=== PATIENT | male | born 1985 | race Two or more races ===

== ENCOUNTER 2023-06-29 14:51 | Emergency (ER) | payer MEDICAID ==
[~2023-06-29] VITALS: Ht 182.9 cm; Wt 111.1 kg
[2023-06-29] MEDS ORDERED: IBUP-1953 PO (17:22)
[2023-06-29 17:30] VITALS: BP 135/95; TEMP 98.4; O2SAT 97
== END 2023-06-29 17:31 | disposition home or self-care (01) ==
LOC: ER 14:55
DX: M25.512 Pain in left shoulder (principal)
CPT/HCPCS: 73030-TC

== ENCOUNTER 2024-11-27 09:20 | Emergency (ER) | payer MEDICAID ==
[~2024-11-27] VITALS: Ht 170.2 cm; Wt 95.3 kg
[~2024-11-27 09:20] MED LIST: IBUP-1953 PO
[2024-11-27] MEDS ORDERED: KETOROLAC TROMETHAMINE 15 MG/ML VIAL ONE ×2 (10:26→14:38)
[2024-11-27 10:34] LABS: CALCIUM, SERUM 9.3 mg/dL (8.5-10.1); CREATININE 0.9 mg/dL (0.6-1.3); SODIUM SERUM 139.0 mmol/L (136-145); UREA NITROGEN, BLOOD 11.0 mg/dL (7-18)
[2024-11-27 10:38] LABS: PLATELET COUNT (AUTO) 171 K/uL (150-450); RED BLOOD CELL COUNT(AUTO) 5.57 MIL/uL (4.5-6.0); RED CELL DISTRIBUTION WIDTH 13.3 % (11.5-15.0); WHITE BLOOD COUNT (AUTO) 10.9 K/uL (4.3-11.0)
[2024-11-27] MEDS: IV NS 0.9% 1,000 ML BAG IV ONE (10:39)
[2024-11-27] MEDS: KETOROLAC TROMETHAMINE 15 MG/ML VIAL IV ONE ×2 (10:41→15:12)
[2024-11-27] MEDS ORDERED: MORPHINE SULFATE INJ 4 MG/ML DISP.SYRIN ONE ×2 (11:50→14:38)
[2024-11-27] MEDS ORDERED: CYCLOBENZAPRINE 10 MG TABLET ONE (11:50)
[2024-11-27] MEDS ORDERED: ONDANSETRON HCL/PF 4 MG/2 ML VIAL ONE (11:50)
[2024-11-27] MEDS: CYCLOBENZAPRINE 10 MG TABLET PO ONE (12:00)
[2024-11-27] MEDS: ONDANSETRON HCL/PF - ER 4 MG/2 ML VIAL IV ONE (12:02)
[2024-11-27] MEDS: MORPHINE SULFATE INJ 2 MG/ML DISP.SYRIN IV ONE ×2 (12:03→15:13)
[2024-11-27] MEDS ORDERED: LIDOCAINE 5% (PATCH) 1 EA PATCH TP ONE (13:02)
[2024-11-27] MEDS ORDERED: DIAZEPAM 5 MG TABLET ONE (13:03)
[2024-11-27] MEDS: LIDOCAINE 5% (PATCH) 1 EA PATCH TP SCH (13:11)
[2024-11-27] MEDS: DIAZEPAM 5 MG TABLET PO ONE (13:11)
[2024-11-27] MEDS ORDERED: ACETAMINOPHEN ES 500 MG TABLET ONE (14:38)
[2024-11-27] MEDS ORDERED: TRAM50TA2 PO (15:05)
[2024-11-27] MEDS ORDERED: IBUP-1490 PO (15:05)
[2024-11-27] MEDS ORDERED: METH750T3 PO (15:05)
[2024-11-27] MEDS: ACETAMINOPHEN ES 500 MG TABLET PO ONE (15:11)
[2024-11-27 17:23] VITALS: BP 100/58; TEMP 98.2; O2SAT 96
== END 2024-11-27 17:24 | disposition home or self-care (01) ==
LOC: ER 09:22
DX: S76.312A Strain of muscle, fascia and tendon of the posterior muscle group at thigh level, left thigh, initial encounter (principal); Z79.1 Long term (current) use of non-steroidal anti-inflammatories (NSAID); Z79.899 Other long term (current) drug therapy; X58.XXXA Exposure to other specified factors, initial encounter; Y93.89 Activity, other specified; Y92.89 Other specified places as the place of occurrence of the external cause; Y99.8 Other external cause status
CPT/HCPCS: 99285; 96374; 73700; 93971; 96361; 96375 ×2; 96376; 85025; 80048; 83735; 36415; J1885 ×2; J2270 ×2; J2405 ×2; J7030